=== PATIENT | female | born 1990 | race Caucasian/White ===

== ENCOUNTER 2024-08-23 19:23 | Emergency (ER) | payer BC, SELFPAY ==
[2024-08-23 19:25] VITALS: BP 116/70; PULSE 77; RESP 16; TEMP 36.6; O2SAT 98; BMI 23.6
--- NOTE | 2024-08-23 19:44 | XR_ITS ---
PROCEDURE INFORMATION: Exam: XR Right Hand Exam date and time: 08/23/2024 7:59 PM Age: 34 years old Clinical indication: Injury or trauma; Other: Slammed finger; Other: Pain; Additional info: Laceration TECHNIQUE: Imaging protocol: Radiologic exam of the right hand. Views: 1 or 2 views. COMPARISON: CR XR FINGER RT MIN 2V 08/23/2024 7:59 PM FINDINGS: Bones/joints: No acute fracture or dislocation Soft tissues: Soft tissue swelling involving the proximal 3rd finger. IMPRESSION: Soft tissue swelling involving the proximal 3rd finger but no underlying acute fracture or dislocation
--- NOTE | 2024-08-23 19:45 | HMH.EDGENADL ---
Discharge Plan Disposition Patient Disposition: Home, Self-Care Condition: Good Prescriptions Prescriptions: New cephalexin 500 mg capsule 500 mg PO BID 7 Days Qty: 14 0RF Referrals Follow up/Referrals: Vish Galloway DO [Staff Physician] - See instructions Meng Marino MD [Primary Care Provider] - See instructions Activity Restrictions/Add. Instructions Additional Instructions/Restrictions: You may wash with soap and water and keep dry. Please do not cover with an occlusive dressing or any type of ointment. I have referred you to Dr. Galloway. Please call in the morning to make your appointment. Return to the emergency department Dr. Galloway or the [facility] for any increasing redness drainage pain or difficulty with movement. Please keep the finger in the splint until evaluated by orthopedics. Clinical Impressions Clinical Impression: Laceration Instructions Patient Instructions: DI for Laceration Repair Print Language Print Language: Peruvian Discharge ED Provider: Ry Dillon General Adult HPI <LUZ ELENA Carnes - Last Filed: 08/23/24 22:15> General Chief complaint: Wound/Laceration Stated complaint: AO 08/23/24 18:45 lac to right hand Time Seen by Provider: 08/23/24 19:44 Mode of Arrival: Ambulatory Source of Information: Patient Limitations: No Limitations Description of Symptoms (Recalled from ER Triage Doc. by RN): Pt presents to ED for a finger lac after dropping a cattle gate on it. Pt has a deep laceration to the R middle finger. Pt has requested a Tetanus shot as well. Pt is A&O*4 and rates her pain at a polk's 4 which equates to 8/10. Family is bedside. History of Present Illness HPI narrative: Patient presents for evaluation of a laceration to the middle finger of her right hand. 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 She denies any numbness and tingling and still has full but painful range of motion. Related Data Previous Rx's ?Medication ?Instructions ?Recorded cephalexin 500 mg capsule 500 mg PO BID 7 days #14 caps 08/23/24 Allergies Allergy/AdvReac Type Severity Reaction Status Date / Time No Known Allergies Allergy Verified 08/23/24 19:43 PFSH <LUZ ELENA Carnes - Last Filed: 08/23/24 22:15> [facility] Disclaimer: The information contained in this section may have been updated after the patient was seen, as this information can be updated by other users. Social History (Updated 08/23/24 @ 22:15 by LUZ ELENA Carnes) Smoking Status: Never smoker alcohol intake: never current occupational status: employed Travel in the last 8 weeks: None <LUZ ELENA Carnes - Last Filed: 08/23/24 22:15> ROS Obtained: Yes Systems reviewed as appropriate & no additional complaints except as documented Physical Exam <LUZ ELENA Carnes - Last Filed: 08/23/24 22:15> General General appearance: alert and in no apparent distress Neck Neck exam: Present lymphadenopathy Respiratory Respiratory exam: Present normal lung sounds bilaterally and accessory muscle use Cardiovascular Cardiovascular exam: Present regular rate Neurological Exam Neurological exam: Present alert and oriented X3 Medical Decision Making <LUZ ELENA Carnes - Last Filed: 08/23/24 22:15> Medical Records Screening: Per USPSTF and CDC recommendations, given the prevalence of disease in our region, it is our hospital?s policy to screen for HIV and viral Hepatitis for all patients aged 18 and over and those with ongoing risk factors. [place] Inquiry Pt receiving controlled substance: No Vital Signs: 08/23/24 19:25 08/23/24 20:58 Temperature 97.8 F 97.9 F Temperature Source Oral Oral Pulse Rate 68 Pulse Rate [Left] 77 Respiratory Rate 16 18 Blood Pressure 116/72 Blood Pressure [Right Arm] 116/70 Blood Pressure Mean [Right Arm] 85 Blood Pressure Source Automatic Cuff Blood Pressure Position Supine 02 Sat by Pulse Oximetry 98 Oxygen Delivery Method Room Air Room Air Orders (Tests/Meds): ED MEDICATIONS Discontinued Medications Generic Name Dose Route Start Last Admin Trade Name Freq PRN Reason Stop Dose Admin Cephalexin HCl 500 mg 08/23/24 20:54 08/23/24 20:57 Cephalexin 500mg Capsule PO 08/23/24 20:55 500 mg ONCE ONE Administration Lidocaine/Epinephrine 5 ml 08/23/24 19:55 08/23/24 20:05 Lidocaine 1% W/Epi 1:100,000 20ml Vial SQ 08/23/24 19:56 5 ml ONCE ONE Administration Tetanus/Reduced Diphtheria/Acell Pertussis 0.5 ml 08/23/24 19:49 08/23/24 20:07 Tet/Diphth/Pert-Adult 0.5ml Syringe IM 08/23/24 19:50 0.5 ml .ONCE ONE Administration ORDERS Category Date Time Status Finger XR right minimum 2 views [XR finger RT min 2V] Exams 08/23/24 19:46 Completed Stat Hand XR right 2 views [XR hand RT 2V] Stat Exams 08/23/24 19:44 Completed Medical Decision Narrative: In summary patient is a patient is a 34-year-old female who presents to the emergency department for evaluation of serration to the dorsum of her right middle finger. Patient is hemodynamically stable upon arrival, afebrile. Zickel exam is remarkable for a triangular flap laceration over the IP joint of her right middle finger patient has full flexion and extension and is neurovascular intact distally.. Differential diagnosis includes simple laceration versus tendon involvement versus joint intrusion etc. Initial workup will be conducted with plain film x-rays.. Initial interventions include digital block exam under anesthesia Tdap Keflex. Initial workup reviewed by me shows no acute fracture and exam under anesthesia that the laceration was to but not through the joint capsule, flexor tendons are intact and my informal interpretation of her x-ray shows no acute fracture. Given this I had an interactive discussion with Dr. Galloway of orthopedic surgery regarding patient management. We reviewed her images and physical exam under anesthesia. He recommended closure splint placement and follow-up in clinic. Given that her wound was closed primarily with six 4.0 nylon sutures in interrupted fashion loosely approximated after aggressive irrigation. Thus patient is appropriate for discharge with follow-up referral to Dr. Galloway. <Ry Dillon MD - Last Filed: 08/23/24 23:04> Vital Signs: 08/23/24 19:25 08/23/24 20:58 Temperature 97.8 F 97.9 F Temperature Source Oral Oral Pulse Rate 68 Pulse Rate [Left] 77 Respiratory Rate 16 18 Blood Pressure 116/72 Blood Pressure [Right Arm] 116/70 Blood Pressure Mean [Right Arm] 85 Blood Pressure Source Automatic Cuff Blood Pressure Position Supine 02 Sat by Pulse Oximetry 98 Oxygen Delivery Method Room Air Room Air Orders (Tests/Meds): ED MEDICATIONS Discontinued Medications Generic Name Dose Route Start Last Admin Trade Name Freq PRN Reason Stop Dose Admin Cephalexin HCl 500 mg 08/23/24 20:54 08/23/24 20:57 Cephalexin 500mg Capsule PO 08/23/24 20:55 500 mg ONCE ONE Administration Lidocaine/Epinephrine 5 ml 08/23/24 19:55 08/23/24 20:05 Lidocaine 1% W/Epi 1:100,000 20ml Vial SQ 08/23/24 19:56 5 ml ONCE ONE Administration Tetanus/Reduced Diphtheria/Acell Pertussis 0.5 ml 08/23/24 19:49 08/23/24 20:07 Tet/Diphth/Pert-Adult 0.5ml Syringe IM 08/23/24 19:50 0.5 ml .ONCE ONE Administration ORDERS Category Date Time Status Finger XR right minimum 2 views [XR finger RT min 2V] Exams 08/23/24 19:46 Completed Stat Hand XR right 2 views [XR hand RT 2V] Stat Exams 08/23/24 19:44 Completed Medical Decision Narrative: In summary patient is a patient is a 34-year-old female who presents to the emergency department for evaluation of serration to the dorsum of her right middle finger. Patient is hemodynamically stable upon arrival, afebrile. Zickel exam is remarkable for a triangular flap laceration over the IP joint of her right middle finger patient has full flexion and extension and is neurovascular intact distally.. Differential diagnosis includes simple laceration versus tendon involvement versus joint intrusion etc. Initial workup will be conducted with plain film x-rays.. Initial interventions include digital block exam under anesthesia Tdap Keflex. Initial workup reviewed by me shows no acute fracture and exam under anesthesia that the laceration was to but not through the joint capsule, flexor tendons are intact and my informal interpretation of her x-ray shows no acute fracture. Given this I had an interactive discussion with Dr. Galloway of orthopedic surgery regarding patient management. We reviewed her images and physical exam under anesthesia. He recommended closure splint placement and follow-up in clinic. Given that her wound was closed primarily with six 4.0 nylon sutures in interrupted fashion loosely approximated after aggressive irrigation. Thus patient is appropriate for discharge with follow-up referral to Dr. Galloway. I was consulted by the LIS, and we discussed the complexity of the problems being addressed. I approved the treatment and management plan for this patient's care in the Emergency Department, thus performing a substantive portion of the medical decision making. Ry Dillon MD Procedures <LUZ ELENA Carnes - Last Filed: 08/23/24 22:15> Laceration Laceration 1: Site: finger Side (If applicable): right Size (cm): 4 Description: flap Depth: simple, single layer and involves subcutaneous layer Local Anesthetic: lidocaine 1% and with epi Amount of anesthesia used (mL): 10 Pre-repair: wound explored, irrigated extensively and deep structures intact Skin layer closed with: nylon Size (cm): 4-0 Number of sutures: 6 Technique: simple, interrupted Critical Care <LUZ ELENA Carnes - Last Filed: 08/23/24 22:15> Critical Care Time Critical Care Time: No
--- NOTE | 2024-08-23 19:46 | XR_ITS ---
PROCEDURE INFORMATION: Exam: XR Right Finger(s) Exam date and time: 08/23/2024 7:59 PM Age: 34 years old Clinical indication: Injury or trauma; Other: Slammed finger; Other: Pain; Additional info: Lac TECHNIQUE: Imaging protocol: Radiologic exam of the right fingers. Views: Minimum 2 views. COMPARISON: CR XR HAND RT 2V 08/23/2024 7:59 PM FINDINGS: Bones/joints: No acute fracture or dislocation. Soft tissues: Soft tissue swelling involving the proximal 3rd finger. IMPRESSION: Soft tissue swelling involving the proximal 3rd finger but no underlying acute fracture or dislocation
[2024-08-23] MEDS: LIDOCAINE 1% W/EPI 1:100,000 20ML VIAL 5 ML SQ (20:05)
[2024-08-23] MEDS: TET/DIPHTH/PERT-ADULT 0.5ML SYRINGE 0.5 ML IM (20:07)
[2024-08-23] MEDS: cephALEXin 500MG CAPSULE 500 MG PO (20:57)
[2024-08-23 20:58] VITALS: BP 116/72; PULSE 68; RESP 18; TEMP 36.6; O2SAT 98
== END 2024-08-23 21:02 | disposition home or self-care (01) ==
PROVIDERS: Emergency Provider Emergency Medicine; PCP Internal Medicine Adolescent Medicine
DX: M79.644 Pain in right finger(s) (principal); S61.219A Laceration without foreign body of unspecified finger without damage to nail, initial encounter; Z23 Encounter for immunization; W26.8XXA Contact with other sharp object(s), not elsewhere classified, initial encounter; Y93.89 Activity, other specified; Y92.79 Other farm location as the place of occurrence of the external cause
CPT/HCPCS: 12002; 73120; 73140; 90471; 90715; 99283

== ENCOUNTER 2024-10-25 10:14 | Emergency (ER) | payer BC, SELFPAY ==
--- NOTE | 2024-10-25 11:56 | ED_ITS ---
Discharge Plan Disposition Patient Disposition: Home, Self-Care Condition: Good Prescriptions Prescriptions: New methylprednisolone 4 mg Tablets,Dose Pack 4 mg PO DIRECTED 6 Days Qty: 21 0RF Rx Instructions: Take 1 pack as directed for 6 days [id number] [Bromfed DM] 2-30-10 mg/5 mL Syrup 5 ml PO Q6H PRN (Reason: Cough) Qty: 240 0RF amoxicillin-pot clavulanate 875-125 mg Tablet 1 tab PO Q12H Qty: 20 0RF No Action norgestimate-ethinyl estradiol [Tri-Lo-Edith] 0.18/0.215/0.25 mg-25 mcg tablet 0.18 tab PO DAILY Patient Comments: TAKE 1 TABLET BY MOUTH EVERY DAY Referrals Follow up/Referrals: Meng Marino MD [Primary Care Provider] - See instructions Activity Restrictions/Add. Instructions Additional Instructions/Restrictions: Drink plenty of fluids. Take tylenol or ibuprofen for pain or fever. Take the medications as directed. Follow up with your regular doctor. GO TO THE ER FOR ANY WORSENING SYMPTOMS Clinical Impressions Clinical Impression: Sinusitis Instructions Patient Instructions: Sinusitis, DI for Sinusitis, Methylprednisolone, Dexamethasone Injection Print Language Print Language: Azeri Discharge ED Provider: Donavon Sutton [facility] General Stated complaint: sinus pressure, teeth hurt. H/A, congestion Time Seen by Provider: 10/25/24 11:56 Related Data Home Medications ?Medication ?Instructions ?Recorded ?Confirmed norgestimate 0.18 mg/0.215 mg/0.25 0.18 tab PO DAILY 10/25/24 10/25/24 mg-ethinyl estradiol 25 mcg tablet (Tri-Lo-Edith) Previous Rx's ?Medication ?Instructions ?Recorded amoxicillin 875 mg-potassium 1 tab PO Q12H #20 tabs 10/25/24 clavulanate 125 mg tablet flpewjpcgjelgkc-uwbsbmqrbvirwbm-NH 5 ml PO Q6H PRN Cough #240 mL 10/25/24 2 mg-30 mg-10 mg/5 mL oral syrup (Bromfed DM) methylprednisolone 4 mg tablets in 4 mg PO DIRECTED 6 days #21 tabs 10/25/24 a dose pack Allergies Allergy/AdvReac Type Severity Reaction Status Date / Time No Known Allergies Allergy Verified 09/02/24 10:21 [facility] Disclaimer: The information contained in this section may have been updated after the patient was seen, as this information can be updated by other users. Social History Smoking Status: Never smoker alcohol intake: never current occupational status: employed Travel in the last 8 weeks: None Have you lived/traveled outside [place] in past 30 days?: No Contact w/someone who lives/traveled outside [place] past 30 days?: No Exposure to someone with infectious disease in past 14 days?: No Do you have a fever (greater than 100.4 F or 38 C)?: No Have you tested positive for COVID-19: No Exposed to someone with COVID-19 in past 14 days?: No Do you have a sore throat?: No Do you have a cough?: No Do you have any weakness?: No Do you have any diarrhea?: No Are you experiencing any unusual bleeding?: No Do you have any muscle aches/pain?: No Do you have any abdominal pain?: No Are you experiencing loss of taste or smell?: No ROS Obtained: Yes All systems reviewed & no additional complaints except as documented Constitutional Constitutional: Reports poor appetite Eyes Eyes: Reports system reviewed and no additional complaints, except as documented ENT Ears, Nose, Mouth, and Throat: Reports as per HPI Cardiovascular Cardiovascular: Reports system reviewed and no additional complaints, except as documented and Denies chest pain Respiratory Respiratory: Denies shortness of breath, Denies chest congestion, Reports cough, Denies stridor and Denies wheezing Gastrointestinal Gastrointestingal: Reports system reviewed and no additional complaints, except as documented; Denies abdominal pain, diarrhea or vomiting Musculoskeletal Musculoskeletal: Reports system reviewed and no additional complaints, except as documented and Denies arthralgias Integumentary/Breasts Skin/Breast: Reports system reviewed and no additional complaints, except as documented and Denies rash Neurologic Neurologic: Denies paresthesias Allergic/Immunologic Allergic/Immunologic: Denies wheezing Physical Exam General General appearance: alert and in no apparent distress Eye Eye exam: Present normal appearance, PERRL and EOMI ENT ENT exam: Present mucous membranes moist and normal external ear exam Expanded ENT Exam External ear exam: Present normal external inspection TM/Canal exam: Bilateral TM: erythema and bulging Nose exam: Absent sinus tenderness Nasal speculum exam: Bilateral: normal Mouth exam: Present normal external inspection; Absent drooling Teeth exam: Present normal inspection Throat exam: Present tonsillar erythema and tonsillomegaly Neck Neck exam: Present normal inspection, full ROM and trachea midline; Absent tenderness, lymphadenopathy or thyromegaly Chest Chest inspection: Present normal inspection and symmetric chest wall rise; Absent tenderness or rash Respiratory Respiratory exam: Present normal lung sounds bilaterally; Absent respiratory distress, wheezes, stridor or accessory muscle use Cardiovascular Cardiovascular exam: Present regular rate, normal rhythm and normal heart sounds Abdominal Exam Abdominal exam: Present soft; Absent distention, tenderness, guarding, rebound or rigidity Extremities Exam Extremities exam: Present normal inspection, full ROM and normal capillary refill; Absent tenderness or calf tenderness Back Exam Back exam: Present normal inspection and full ROM; Absent tenderness Neurological Exam Neurological exam: Present alert and oriented X3 Psychiatric Psychiatric exam: Present normal affect and normal mood Skin Skin exam: Present warm, dry, intact and normal color Lymphatic Lymphatic Findings: no adenopathy Medical Decision Making Medical Records Medical records reviewed: No I reviewed the patient's medical records. Screening: Per USPSTF and CDC recommendations, given the prevalence of disease in our region, it is our hospital?s policy to screen for HIV and viral Hepatitis for all patients aged 18 and over and those with ongoing risk factors. [place] Inquiry Pt receiving controlled substance: No Lab Data Lab results reviewed: Yes I reviewed the patient's lab results.
[2024-10-25 11:58] VITALS: BP 124/54; PULSE 86; RESP 20; TEMP 36.9; O2SAT 97; BMI 25.4
[2024-10-25] MEDS: DEXAMETHASONE 4MG/ML 1ML VIAL 8 MG IM (12:25)
[2024-10-25 12:40] VITALS: BP 124/54; PULSE 86; RESP 20; TEMP 36.9
== END 2024-10-25 12:41 | disposition home or self-care (01) ==
PROVIDERS: Emergency Provider Nurse Practitioner Family; PCP Internal Medicine Adolescent Medicine
DX: J01.90 Acute sinusitis, unspecified (principal); R09.81 Nasal congestion; R51.9 Headache, unspecified; R63.8 Other symptoms and signs concerning food and fluid intake; R05.9 Cough, unspecified
CPT/HCPCS: 99212; G0381; J1100